=== PATIENT | female | born 1980 | race Caucasian/White ===

== ENCOUNTER → 2017-05-30 | Outpatient (CLI) | payer OTHER ==
[~2017-05-30] MED LIST: BIRTHCONTROL; PERCOCET 325 MG1 TA2 PO; PERCOCET 325 MG1 TA4 PO; PRENATAL VITA1 UDTAB PO; ULTRAM 50MG TAB50 MG PO
== END ==
LOC: SUN.DIA 10:54
DX: O24.419 Gestational diabetes mellitus in pregnancy, unspecified control (principal); Z3A.29 29 weeks gestation of pregnancy; Z71.3 Dietary counseling and surveillance
CPT/HCPCS: G0108

== ENCOUNTER 2017-07-04 05:38 | Inpatient (IN) | payer BC ==
[~2017-07-04] VITALS: Ht 162.6 cm; Wt 95.5 kg
[2017-08-05] VITALS (51 sets, daily range): BP systolic 99–132; BP diastolic 53–90; PULSE 67–120; TEMP 97.6–98.8
[2017-08-05] MEDS ORDERED: ZOLOFT 100MG100 MG PO (06:51)
[2017-08-05] MEDS ORDERED: SYNTHROID 0.0.025 MG PO (06:53)
[2017-08-05] MEDS ORDERED: TUMS500 MG (08:07)
[2017-08-05 08:08] LABS: HEMATOCRIT 37.5 % (37.0-47.0); HEMOGLOBIN 12.4 g/dl (12.5-16.0); MEAN CELL VOLUME 82 fl (80.0-100.0); MEAN CORPUSCULAR HEMOGLOBIN 27 pg (27.0-31.0); MEAN CORPUSCULAR HGB CONC 33 g/dl (33.0-37.0); MEAN PLATELET VOLUME 12.3 fl (7.4-10.4); PLATELET COUNT 187 K/mm3 (130-400)
[2017-08-05 08:11] LABS: ADD PATHOLOGY DIFF REVIEW NO
[2017-08-05 08:30] LABS: BAND 1 % (0-10); EOSINOPHIL 1 % (0-4); LYMPHOCYTE 23 % (20.0-51.0); NEUTROPHILS 70 % (42.0-75.2); PLATELET ESTIMATE NORMAL (NORMAL); TOTAL CELLS COUNTED 100
[2017-08-06 00:49] VITALS: BP 108/50; PULSE 68; TEMP 97.8
[2017-08-06 05:00] VITALS: BP 105/55; PULSE 72; TEMP 97.7
[2017-08-06 07:50] VITALS: BP 100/53; PULSE 74; TEMP 97.4
[2017-08-06 12:00] VITALS: BP 110/59; PULSE 74; TEMP 98.1
[2017-08-06 19:53] VITALS: BP 116/60; PULSE 68; TEMP 98.4
[2017-08-07 07:59] VITALS: BP 111/75; PULSE 78; TEMP 97.8
[2017-08-07] MEDS ORDERED: IBU600 MG PO (09:09)
[2017-08-07] MEDS ORDERED: PERCOCET 325 MG1 TA2 PO (09:27)
== END 2017-08-07 11:40 | disposition home or self-care (01) | DRG 774 ==
LOC: LDR 08-05 06:37 → OB 08-05 21:00 → LDRO 08-08 05:38 → EDSTATUS 08-08 09:33
PROVIDERS: Obstetrics & Gynecology
PROC: 3E033VJ Introduction of Other Hormone into Peripheral Vein, Percutaneous Approach (ICD-10-PCS; principal; 2017-08-05)
PROC: 10E0XZZ Delivery of Products of Conception, External Approach (ICD-10-PCS; 2017-08-05)
PROC: 0KQM0ZZ Repair Perineum Muscle, Open Approach (ICD-10-PCS; 2017-08-05)
DX: O24.420 Gestational diabetes mellitus in childbirth, diet controlled (principal); O44.43 Low lying placenta NOS or without hemorrhage, third trimester; O36.0130 Maternal care for anti-D [Rh] antibodies, third trimester, not applicable or unspecified; O70.1 Second degree perineal laceration during delivery; O69.81X0 Labor and delivery complicated by cord around neck, without compression, not applicable or unspecified; Z3A.39 39 weeks gestation of pregnancy; Z37.0 Single live birth
CPT/HCPCS: J2405; J2590; J2795; J7120

== ENCOUNTER → 2018-06-12 | Outpatient (CLI) | payer BC ==
[~2018-06-12] MED LIST changes: +IBU600 MG PO; +SYNTHROID 0.0.025 MG PO; +TUMS500 MG; +ZOLOFT 100MG100 MG PO
== END ==
LOC: MC.RAD 12:39
DX: Z12.31 Encounter for screening mammogram for malignant neoplasm of breast (principal); N64.89 Other specified disorders of breast

== ENCOUNTER → 2018-06-19 | Outpatient (CLI) | payer BC | LOC: MC.RAD 13:54 | DX: N64.89 Other specified disorders of breast (principal) | CPT/HCPCS: G0279 ==

== ENCOUNTER → 2019-04-24 | Outpatient (CLI) | payer BC | LOC: COL.RAD 07:23 | DX: K76.0 Fatty (change of) liver, not elsewhere classified (principal) | CPT/HCPCS: Q9967 ==

== ENCOUNTER → 2020-08-15 | Outpatient (CLI) | payer BC | LOC: DIA.ED 15:20 | DX: O24.419 Gestational diabetes mellitus in pregnancy, unspecified control (principal) | CPT/HCPCS: G0108 ==

== ENCOUNTER → 2020-10-05 | Outpatient (CLI) | payer BC ==
[~2020-10-05] MED LIST changes: +LEVOXYL0.2 MG PO; +LEXAPRO 5MG5 MG; +NOVOLIN N100 U/ML SQ
== END ==
LOC: ZCOL.LAB 08:00
DX: Z20.822 Contact with and (suspected) exposure to COVID-19 (principal)

== ENCOUNTER 2020-10-10 07:10 | Inpatient (IN) | payer BC ==
[2020-10-10] VITALS (44 sets, daily range): BP systolic 85–144; BP diastolic 52–90; PULSE 72–109; TEMP 97.6–98.9
[~2020-10-10] VITALS: Ht 162.6 cm; Wt 117.3 kg
[~2020-10-10 07:10] MED LIST changes: -LEVOXYL0.2 MG PO; -LEXAPRO 5MG5 MG; -NOVOLIN N100 U/ML SQ
--- NOTE | 2020-10-10 07:15 | NUR ---
PATIENT HERE TO [facility] FOR INDUTCION WITH , NATALIE. PATIENT CHANGED INTO GOWN, ON EFM, ASSESMENT COMPLETE, IV STARTED. CONSENTS SIGNED MONITOROING AUDIBLE ON MONITOR. PATIENT FEELING MOVEMENT. INTERMITTENT TRACING ON MONITOR. SABINE DAVENPORT RN ASSISTED THIS RN. DR COBOS CALLED AT [phone] AND NOTIFIED OF EFM ISSUES
[2020-10-10] MEDS ORDERED: LEXAPRO 5MG5 MG (07:38)
[2020-10-10] MEDS ORDERED: LEVOXYL0.2 MG PO (07:39)
[2020-10-10] MEDS ORDERED: NOVOLIN N100 U/ML SQ (07:41)
[2020-10-10 08:47] LABS: MEAN CELL VOLUME 81 fl (80.0-100.0); MEAN CORPUSCULAR HEMOGLOBIN 26 pg (27.0-31.0); MEAN CORPUSCULAR HGB CONC 33 g/dl (33.0-37.0); MEAN PLATELET VOLUME 11.5 fl (7.4-10.4); PLATELET COUNT 276 K/mm3 (130-400); RED BLOOD COUNT 4.55 M/mm3 (4.10-5.30); REDCELL DISTRIBUTION WIDTH-CV 15.7 % (11.5-14.5)
[2020-10-10 08:58] LABS: HEMATOCRIT 36.7 % (37.0-47.0)
[2020-10-10 09:47] LABS: BAND 2 % (0-10); EOSINOPHIL 3 % (0-4); HYPOCHROMIA 1+; METAMYELOCYTE 2 % (0-0); MYELOCYTE 1 % (0-0); NEUTROPHILS 60 % (42.0-75.2)
[2020-10-10 09:54] LABS: LYMPHOCYTE 25 % (20.0-51.0)
--- NOTE | 2020-10-10 10:14 | NUR ---
PATIENT FEELING LIGHT HEADED DUE TO BLOOD SUGAR. CRANBERRY JUICE PROVIDED TO PATIENT
--- NOTE | 2020-10-10 11:26 | NUR ---
[id number] INTERMITTENTLY TRACING HEART TONES. PATIENT UP TO BATHROOM, REPOSITIONED, BELLY BAND READJUSTED. PATIENT FEELING BABY, AUDIBLE HEART TONES ON MONITOR
--- NOTE | 2020-10-10 12:20 | NUR ---
ORANGE JUICE GIVEN TO PATIENT
--- NOTE | 2020-10-10 12:34 | NUR ---
SCALP ELECTRODE PREFORMED WITH SVE BY DR COBOS
--- NOTE | 2020-10-10 17:20 | NUR ---
AMINA COBOS. TO MOTHERS CHEST IN CARE OF CHUCK, RN PLACENTA SPON DELIVERED. PITOCIN STARTED AT 333 MLS. HR. FUNDAL MASSAGE PROVIDED. PERINEUM REPAIRED BY DR COBOS.
--- NOTE | 2020-10-10 18:45 | NUR ---
IV FLUIDS INFUSED AND IV TO INT. SITTING UP FEEDING BABY
--- NOTE | 2020-10-10 20:00 | NUR ---
2000 EPID CATH DCD. UP TO BR WITH ASSIST AND VOIDED 600CC. PERICARE DONE. TO 215 PER W/C AND MARY WELL. ORIENTED TO ROOM. C/O SOME DISCOMFORT AND PERCOCET X1 PO GIVEN.
[2020-10-11 05:00] VITALS: BP 141/83; PULSE 92; TEMP 98.3
[2020-10-11 07:30] VITALS: BP 121/55; PULSE 77; TEMP 97.9
[2020-10-11] MEDS ORDERED: IBU600 MG PO (08:28)
[2020-10-11 08:49] LABS: PATHOLOGY DIFF REVIEW OK +
--- NOTE | 2020-10-11 09:06 | NUR ---
Initial visit; Physician with patient. Statue Maker left card of congratulations and God's blessings along with information regarding the avaiability of spiritual care at our hospital.
[2020-10-11 16:00] VITALS: BP 91/65; PULSE 88; TEMP 98.3
[2020-10-11 21:20] VITALS: BP 112/48; PULSE 76; TEMP 97.4
[2020-10-12 07:50] VITALS: BP 103/49; PULSE 88; TEMP 98.2
[2020-10-12] MEDS ORDERED: PERCOCET 325 MG1 TA2 PO (11:05)
--- NOTE | 2020-10-12 15:30 | NUR ---
1530- Home meds returned to Pt from Pharmacy.
== END 2020-10-12 15:30 | disposition home or self-care (01) | DRG 807 ==
LOC: LDR 07:10 → OB 12:42
PROVIDERS: ADMIT Obstetrics & Gynecology
PROC: 10E0XZZ Delivery of Products of Conception, External Approach (ICD-10-PCS; principal; 2020-10-10)
PROC: 10907ZC Drainage of Amniotic Fluid, Therapeutic from Products of Conception, Via Natural or Artificial Opening (ICD-10-PCS; 2020-10-10)
PROC: 0HQ9XZZ Repair Perineum Skin, External Approach (ICD-10-PCS; 2020-10-10)
DX: O24.420 Gestational diabetes mellitus in childbirth, diet controlled (principal); Z37.0 Single live birth; Z3A.38 38 weeks gestation of pregnancy; O99.214 Obesity complicating childbirth; E66.9 Obesity, unspecified; O99.344 Other mental disorders complicating childbirth; O77.0 Labor and delivery complicated by meconium in amniotic fluid; O70.0 First degree perineal laceration during delivery; O99.824 Streptococcus B carrier state complicating childbirth; O26.893 Other specified pregnancy related conditions, third trimester; Z67.11 Type A blood, Rh negative
CPT/HCPCS: J2210; J2540; J2590; J7120